=== PATIENT | female | born 2005 | race African-American/Black ===

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

== ENCOUNTER 2024-04-10 09:43 | Outpatient (CLI) | payer OTHER, SELFPAY | END 2024-04-10 09:44 | disposition home or self-care (01) | PROVIDERS: Visit Provider Physician Assistant | DX: N91.2 Amenorrhea, unspecified (principal) | CPT/HCPCS: 80061; 82947; 83498; 83525; 84270; 84402; 84403 ==